=== PATIENT | female | born 1995 | race Caucasian/White ===

== ENCOUNTER 2020-10-11 09:28 | Outpatient (REF) | payer MEDICAID, SELFPAY | END 2020-10-11 09:29 | disposition home or self-care (01) | LOC: HO.LAB 09:28 | PROVIDERS: Visit Provider Internal Medicine | DX: Z20.828 Contact with and (suspected) exposure to other viral communicable diseases (principal) | CPT/HCPCS: C9803; U0003 ==

== ENCOUNTER → 2021-04-27 09:26 | Outpatient (BNVA) | payer SELFPAY | PROVIDERS: Visit Provider Physician Assistant Medical | DX: Z76.89 Persons encountering health services in other specified circumstances (principal) ==

== ENCOUNTER 2021-07-31 15:55 | Emergency (ER) | payer OTHER, SELFPAY ==
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
[2021-07-31 16:27] VITALS: BP 108/77; PULSE 81; RESP 18; TEMP 36.7; O2SAT 100; BMI 31.1
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
[2021-07-31 18:48] VITALS: BP 121/60; PULSE 71; RESP 16; TEMP 37; O2SAT 99
[2021-07-31 19:06] LABS: Glucose Urine UA NEG (NEG); Leukocyte Esterase Urine NEG (NEG); Nitrite Urine NEG (NEG); Urine Blood NEG (NEG); Urine Ketones NEG (NEG); Urine Protein NEG (NEG-TRACE)
[2021-07-31 19:07] LABS: Appearance Urine CLEAR; Color Urine YELLOW
[2021-07-31 19:08] LABS: UPreg QC Valid YES; Urine Pregnancy NEGATIVE (NEGATIVE)
[2021-07-31] MEDS: Ibuprofen 800 MG TABLET PO (19:16)
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
== END 2021-07-31 21:32 | disposition home or self-care (01) ==
PROVIDERS: Emergency Provider Emergency Medicine
DX: S29.012A Strain of muscle and tendon of back wall of thorax, initial encounter (principal); S39.012A Strain of muscle, fascia and tendon of lower back, initial encounter; V43.52XA Car driver injured in collision with other type car in traffic accident, initial encounter; Y93.89 Activity, other specified; Y92.414 Local residential or business street as the place of occurrence of the external cause; Y99.9 Unspecified external cause status
CPT/HCPCS: 72070; 72100; 81003; 81025; 96372; 99283; 99284

== ENCOUNTER 2022-02-22 13:32 | Outpatient (REF) | payer MEDICAID, SELFPAY ==
[2022-02-22 14:34] LABS: MANUAL DIFF FLAG NO
[2022-02-22 14:56] LABS: Basophils Percent Auto 0.3 % (0-2); Eosinophils Absolute Auto 0.1 X10*3/uL (0.0-0.4); Hematocrit 32.8 % (37.0-47.0); Hemoglobin 11.1 g/dl (12.0-16.0); Imm Gran Abs Auto 0.02 X10*3/uL (0.00-0.03); Imm Gran Pct Auto 0.3 % (0.0-0.4); Lymphocytes Absolute Auto 2.7 X10*3/uL (1.2-4.9); Lymphocytes Percent Auto 33.9 % (20-40); Mean Corpuscular HGB Conc 33.8 g/dl (31.0-35.0); Mean Corpuscular Hemoglobin 29.5 pg (27.0-33.0); Mean Corpuscular Volume 87.2 fL (80.0-98.0); Mean Platelet Volume 9.5 fL (9.4-12.3); Monocytes Absolute Auto 0.5 X10*3/uL (0.1-1.2); Neutrophils Absolute Auto 4.6 x10*3/uL (2.0-8.3); Neutrophils Percent Auto 58.5 % (45-73); Platelet Count 282 X10*3/uL (160-400); Red Blood Count 3.76 X10*6/uL (4.20-5.50); Red Cell Distribution Width 11.3 % (11.0-16.0); White Blood Count 7.9 X10*3/uL (4.8-10.8)
[2022-02-22 15:31] LABS: Alanine Aminotransferase 12 U/L (0-31); Alkaline Phosphatase 52 U/L (39-117); Anion Gap 8 (12-20); Aspartate Amino Transferase 14 U/L (5-31); Bilirubin Total 0.3 mg/dL (0.0-1.0); Blood Urea Nitrogen 8 mg/dL (9-16); C Reactive Protein 0.16 mg/dL (< or = 0.50); Calcium 9.2 mg/dL (8.4-10.2); Carbon Dioxide 28 mmol/L (22-29); Chloride 106 mmol/L (96-108); Estimated Glomerular Filt Rate > 60; Glucose Random 97 mg/dL (60-115); Potassium 3.6 mmol/L (3.3-5.1); Sodium 138 mmol/L (135-145); Total Protein 6.8 g/dL (6.5-8.0)
[2022-02-23 13:27] LABS: Transglutaminase Ab IgG <1.0 U/mL; Transglutaminase IgA <1.0 U/mL
== END 2022-02-22 13:33 | disposition home or self-care (01) ==
LOC: HO.LAB 13:32
PROVIDERS: PCP Internal Medicine; Referring Provider Internal Medicine; Visit Provider Nurse Practitioner
DX: K52.9 Noninfective gastroenteritis and colitis, unspecified (principal)
CPT/HCPCS: 36415; 80053; 85025; 86140; 86364; 99202

== ENCOUNTER 2022-03-19 13:41 | Outpatient (REF) | payer MEDICAID, SELFPAY ==
--- NOTE | ~2022-03-19 | XR_ITS ---
EXAMINATION: XR CHEST CLINICAL INFORMATION: Chest pain, unspecified COMPARISON: None TECHNIQUE: 2 views of the chest were obtained. FINDINGS: The lungs are clear. No airspace consolidation or groundglass opacity or effusion. No pneumothorax or pleural reaction. No hyperinflation. The heart is normal in size. The hilar and mediastinal contours and visualized bony structures are unremarkable. XR/XR chest 2V IMPRESSION: Normal study.
== END 2022-03-19 13:42 | disposition home or self-care (01) ==
LOC: HO.XRAY 13:41
PROVIDERS: Absent Provider Internal Medicine; PCP Internal Medicine; Visit Provider Nurse Practitioner
DX: R07.9 Chest pain, unspecified (principal)
CPT/HCPCS: 71046

== ENCOUNTER 2022-04-04 11:41 | Outpatient (REF) | payer MEDICAID, SELFPAY ==
[2022-04-11 03:01] LABS: Calprotectin, Fecal 40 mcg/g
== END 2022-04-04 11:42 | disposition home or self-care (01) ==
LOC: HO.LNP 11:41
PROVIDERS: Visit Provider Nurse Practitioner
DX: K52.9 Noninfective gastroenteritis and colitis, unspecified (principal)
CPT/HCPCS: 83993

== ENCOUNTER → 2022-04-05 13:38 | Outpatient (BNVA) | payer MEDICAID, SELFPAY | PROVIDERS: PCP Internal Medicine; Referring Provider Internal Medicine; Visit Provider Nurse Practitioner | DX: K52.9 Noninfective gastroenteritis and colitis, unspecified (principal) | CPT/HCPCS: 99212 ==

== ENCOUNTER → 2022-05-20 10:28 | Outpatient (BNVA) | payer MEDICAID, SELFPAY | PROVIDERS: PCP Internal Medicine; Referring Provider Nurse Practitioner; Visit Provider Internal Medicine Cardiovascular Disease | DX: R07.2 Precordial pain (principal) | CPT/HCPCS: 99202 ==

== ENCOUNTER 2022-07-16 15:39 | Outpatient (REF) | payer MEDICAID, SELFPAY ==
[2022-07-16 15:59] LABS: MANUAL DIFF FLAG NO
[2022-07-16 16:25] LABS: Basophils Percent Auto 0.6 % (0-2); Eosinophils Absolute Auto 0.2 X10*3/uL (0.0-0.4); Eosinophils Percent Auto 2.5 % (0-4); Hematocrit 36.5 % (37.0-47.0); Imm Gran Abs Auto 0.04 X10*3/uL (0.00-0.03); Imm Gran Pct Auto 0.6 % (0.0-0.4); Lymphocytes Absolute Auto 1.7 X10*3/uL (1.2-4.9); Lymphocytes Percent Auto 26.3 % (20-40); Mean Corpuscular HGB Conc 35.6 g/dl (31.0-35.0); Mean Corpuscular Hemoglobin 29.9 pg (27.0-33.0); Mean Corpuscular Volume 83.9 fL (80.0-98.0); Mean Platelet Volume 9.1 fL (9.4-12.3); Monocytes Absolute Auto 0.7 X10*3/uL (0.1-1.2); Monocytes Percent Auto 10.8 % (2-11); Neutrophils Absolute Auto 3.8 x10*3/uL (2.0-8.3); Neutrophils Percent Auto 59.2 % (45-73); Platelet Count 307 X10*3/uL (160-400); Red Blood Count 4.35 X10*6/uL (4.20-5.50); Red Cell Distribution Width 11.5 % (11.0-16.0); White Blood Count 6.5 X10*3/uL (4.8-10.8)
[2022-07-16 16:48] LABS: C Reactive Protein 4.06 mg/dL (< or = 0.50); Lactate Dehydrogenase 171 U/L (122-220)
[2022-07-17 17:18] LABS: CDiff Gene PCR NEGATIVE (Negative)
[2022-07-18 16:36] LABS: Transglutaminase Ab IgG <1.0 U/mL; Transglutaminase IgA <1.0 U/mL
== END 2022-07-16 15:40 | disposition home or self-care (01) ==
LOC: HO.LAB 15:39
PROVIDERS: PCP Internal Medicine; Visit Provider Nurse Practitioner
DX: K52.9 Noninfective gastroenteritis and colitis, unspecified (principal); R10.9 Unspecified abdominal pain; R11.2 Nausea with vomiting, unspecified
CPT/HCPCS: 36415; 83615; 85025; 86003; 86140; 86364; 87493; 99212

== ENCOUNTER 2022-07-19 08:04 | Outpatient (REF) | payer MEDICAID, SELFPAY ==
--- NOTE | ~2022-07-19 | CT_ITS ---
EXAMINATION: CT ABDOMEN AND PELVIS WITH CONTRAST CLINICAL INFORMATION: Noninfective gastroenteritis and colitis COMPARISON: None TECHNIQUE: Multidetector volumetric images were obtained from the superior aspect of the liver through the pubic symphysis following administration 85 mL of Omnipaque 350 intravenous contrast. Sagittal and coronal reformatted images were obtained on the technologist's workstation. Oral contrast: Yes This CT examination was performed using dose optimization techniques as appropriate, variously including the following: *Automated exposure control *Adjustment of mA and/or kV according to patient size (this includes techniques or standardized protocols for targeted exams where dose is matched to indication/reason for exam; i.e. extremities or head) *Use of iterative reconstruction technique DLP: 377 mGy-cm FINDINGS: LUNG BASES: The visualized lung bases are unremarkable. LIVER, GALLBLADDER, AND BILIARY TREE: The liver is normal in size, shape, and attenuation. No focal hepatic lesion or biliary ductal dilatation is present. The gallbladder is unremarkable with no evidence of radiopaque gallstones, gallbladder wall thickening, or obvious pericholecystic inflammatory changes. PANCREAS: Unremarkable. SPLEEN: Unremarkable. ADRENAL GLANDS: Unremarkable. KIDNEYS AND URETERS: The kidneys are normal in size, shape, and attenuation. No hydronephrosis, hydroureter, or calculi seen. No perinephric stranding. BLADDER: Unremarkable. GASTROINTESTINAL TRACT: There is a large amount of stool in the distal colon suggestive of constipation. There is question of wall thickening in the cecum. Small and large bowel are otherwise unremarkable. The appendix is not seen. The stomach is normal. ABDOMINAL WALL: No significant hernia is appreciated. LYMPH NODES: There are prominent small bowel mesentery lymph nodes in the right lower quadrant. Largest lymph nodes are upper normal in size measuring 1 cm in short axis. No other adenopathy. There is trace ascites in the right lower quadrant and pelvis. VASCULAR: Unremarkable. PELVIC VISCERA: Unremarkable. OSSEOUS STRUCTURES: Unremarkable. CT/CT abdomen pelvis w con IMPRESSION: Constipation. Question wall thickening in the cecum. Prominent small bowel mesentery lymph nodes in the right lower quadrant. Fleischner guidelines were followed.
[2022-07-19] MEDS: iohexoL 350 MG/ML 100 ML INFUS..BTL IV (10:36)
[2022-07-19] MEDS: Barium Sulfate Oral (Mocha) 450 ML ORAL.SUSP 900 ML PO (10:37)
== END 2022-07-19 08:05 | disposition home or self-care (01) ==
LOC: HO.CT 08:04
PROVIDERS: Visit Provider Nurse Practitioner
DX: K52.9 Noninfective gastroenteritis and colitis, unspecified (principal)
CPT/HCPCS: 74177; Q9967

== ENCOUNTER → 2022-07-25 15:08 | Outpatient (BNVA) | payer MEDICAID, SELFPAY | PROVIDERS: PCP Internal Medicine; Referring Provider Internal Medicine; Visit Provider Nurse Practitioner | DX: K37 Unspecified appendicitis (principal) | CPT/HCPCS: 99212 ==

== ENCOUNTER → 2022-10-03 15:36 | Outpatient (BNVA) | payer MEDICAID, SELFPAY | PROVIDERS: PCP Internal Medicine; Visit Provider Nurse Practitioner | DX: K52.9 Noninfective gastroenteritis and colitis, unspecified (principal); K58.9 Irritable bowel syndrome, unspecified; R10.9 Unspecified abdominal pain; R11.2 Nausea with vomiting, unspecified; R19.7 Diarrhea, unspecified; R79.82 Elevated C-reactive protein (CRP) | CPT/HCPCS: 99212 ==

== ENCOUNTER 2022-10-24 15:46 | Outpatient (REF) | payer MEDICAID, SELFPAY ==
[2022-10-24 17:40] LABS: C Reactive Protein 0.29 mg/dL (< or = 0.50)
== END 2022-10-24 15:47 | disposition home or self-care (01) ==
LOC: HO.LAB 15:46
PROVIDERS: PCP Internal Medicine; Visit Provider Nurse Practitioner
DX: K52.9 Noninfective gastroenteritis and colitis, unspecified (principal); R10.9 Unspecified abdominal pain; R11.2 Nausea with vomiting, unspecified; R79.82 Elevated C-reactive protein (CRP)
CPT/HCPCS: 36415; 86140; 99212

== ENCOUNTER 2023-02-13 10:30 | Outpatient (REF) | payer MEDICAID, SELFPAY ==
[2023-02-13 11:23] LABS: MANUAL DIFF FLAG NO
[2023-02-13 12:25] LABS: Basophils Absolute Auto 0.1 X10*3/uL (0.0-0.2); Basophils Percent Auto 0.8 % (0-2); Eosinophils Absolute Auto 0.1 X10*3/uL (0.0-0.4); Eosinophils Percent Auto 0.9 % (0-4); Hemoglobin 11.7 g/dl (12.0-16.0); Imm Gran Abs Auto 0.01 X10*3/uL (0.00-0.03); Imm Gran Pct Auto 0.2 % (0.0-0.4); Lymphocytes Absolute Auto 2.7 X10*3/uL (1.2-4.9); Mean Corpuscular HGB Conc 33.4 g/dl (31.0-35.0); Mean Corpuscular Hemoglobin 30.4 pg (27.0-33.0); Mean Corpuscular Volume 90.9 fL (80.0-98.0); Mean Platelet Volume 9.7 fL (9.4-12.3); Monocytes Absolute Auto 0.4 X10*3/uL (0.1-1.2); Monocytes Percent Auto 6.8 % (2-11); Neutrophils Absolute Auto 3.1 x10*3/uL (2.0-8.3); Neutrophils Percent Auto 48.3 % (45-73); Platelet Count 305 X10*3/uL (160-400); Red Blood Count 3.85 X10*6/uL (4.20-5.50); Red Cell Distribution Width 11.9 % (11.0-16.0); White Blood Count 6.4 X10*3/uL (4.8-10.8)
[2023-02-13 12:33] LABS: Prothrombin Time 11.9 SEC (10.0-13.1)
[2023-02-13 13:13] LABS: Alanine Aminotransferase 8 U/L (0-31); Albumin Level 4.1 g/dL (3.5-5.0); Alkaline Phosphatase 53 U/L (39-117); Anion Gap 11 (12-20); Aspartate Amino Transferase 16 U/L (5-31); Bilirubin Total 0.6 mg/dL (0.0-1.0); Blood Urea Nitrogen 9 mg/dL (9-16); C Reactive Protein < 0.10 mg/dL (< or = 0.50); Calcium 8.9 mg/dL (8.4-10.2); Carbon Dioxide 27 mmol/L (22-29); Chloride 106 mmol/L (96-108); Estimated Glomerular Filt Rate > 60; Glucose Random 80 mg/dL (60-115); Potassium 3.9 mmol/L (3.3-5.1); Sodium 140 mmol/L (135-145)
[2023-02-13 13:18] LABS: TSH reflex Free T4 0.51 uIU/mL (0.32-4.0)
[2023-02-18 07:43] LABS: Anti Nuclear Antibody Screen NEGATIVE (NEGATIVE)
== END 2023-02-13 10:31 | disposition home or self-care (01) ==
LOC: HO.LAB 10:30
PROVIDERS: PCP Internal Medicine; Visit Provider Nurse Practitioner
DX: K58.9 Irritable bowel syndrome, unspecified (principal); R19.7 Diarrhea, unspecified; R10.9 Unspecified abdominal pain; R23.8 Other skin changes; R79.82 Elevated C-reactive protein (CRP)
CPT/HCPCS: 36415; 80053; 84443; 85025; 85610; 86003; 86038; 86039; 86140; 99212

== ENCOUNTER 2023-02-17 08:30 | Outpatient (REF) | payer MEDICAID, SELFPAY ==
[2023-02-28 19:43] LABS: Pancreatic Elastase-1 >500 mcg/g
== END 2023-02-17 08:31 | disposition home or self-care (01) ==
LOC: HO.LNP 08:30
PROVIDERS: Visit Provider Nurse Practitioner
DX: K58.9 Irritable bowel syndrome, unspecified (principal)
CPT/HCPCS: 82656

== ENCOUNTER → 2023-04-09 11:20 | Outpatient (BNVA) | payer MEDICAID, SELFPAY | PROVIDERS: PCP Internal Medicine; Visit Provider Nurse Practitioner | DX: R11.0 Nausea (principal); R19.7 Diarrhea, unspecified; R68.81 Early satiety | CPT/HCPCS: 99212 ==

== ENCOUNTER → 2023-04-29 08:45 | Outpatient (REF) | payer MEDICAID, SELFPAY ==
--- NOTE | ~2023-04-29 | NM_ITS ---
EXAMINATION: RADIONUCLIDE SOLID FOOD GASTRIC EMPTYING 4-HOUR STUDY CLINICAL INFORMATION: Diarrhea, unspecified. COMPARISON: No previous gastric emptying study is available for comparison TECHNIQUE: A standard meal consisting of 4 oz of Egg Beaters brand equivalent tagged with 930 microcuries Tc-99m Sulfur Colloid, 8 oz water and 2 slices of toast with jelly was administered orally to the patient. Images were obtained using a dual head gamma camera in the anterior and posterior projections over of the stomach immediately post ingestion and at hourly intervals up to 4 hours post ingestion. The anterior and posterior counts at each time interval were averaged using the geometric mean and expressed as percentage of the immediate post ingestion counts. FINDINGS: There is good visualization of activity in the stomach immediately post ingestion. As the study progresses, there is good clearance of activity from the stomach and visualization of progressively increasing small bowel activity. By the end of the study, there is almost no retention noted in the stomach. Retention in the stomach at each time interval was: 1 hour 68% (normal 37%-90%) 2 hours 29% (normal 30%-60%) 3 hours 21% 4 hours 6% (normal 0%-10%) NM/NM gastric emptying study IMPRESSION: Normal 4-hour solid food gastric emptying study.
== END ==
LOC: HO.NUCMED 08:45
PROVIDERS: PCP Internal Medicine; Visit Provider Nurse Practitioner
DX: R68.81 Early satiety (principal); R19.7 Diarrhea, unspecified; R11.0 Nausea
CPT/HCPCS: 78264; A9541

== ENCOUNTER → 2023-05-21 11:20 | Outpatient (BNVA) | payer MEDICAID, SELFPAY | PROVIDERS: PCP Internal Medicine; Visit Provider Nurse Practitioner | DX: R19.7 Diarrhea, unspecified (principal); R68.81 Early satiety; R11.0 Nausea; R79.82 Elevated C-reactive protein (CRP) | CPT/HCPCS: 99212 ==

== ENCOUNTER → 2023-08-21 13:55 | Outpatient (BNVA) | payer MEDICAID, SELFPAY | PROVIDERS: PCP Internal Medicine; Visit Provider Nurse Practitioner | DX: R19.7 Diarrhea, unspecified (principal) | CPT/HCPCS: 99212 ==

== ENCOUNTER 2023-08-21 13:56 | Outpatient (AMB) | payer MEDICAID, SELFPAY ==
--- NOTE | 2023-08-21 13:52 | MHC.OFFVIS ---
Intake Vital Signs 08/21/23 13:58 Height 5 ft 2 in Weight 130 lb 15.273 oz BMI 23.9 BP 115/79 Blood Pressure Location Lt brachial Position Sitting Pulse 85 Intake Visit Reasons: 3 month fu Intake Note: Christin presents in the office today in 3 months follow up. CC: Patient reports doing well with medications. Pt needs refill on Creon and dicyclomine. Denies any new GI symptoms or concerns. Research & Analytics Manager Required: No Accompanied by: Self / Same As Patient Allergies No Known Allergies [No Known Allergies*] Allergy (Verified 05/21/23 11:33) HPI 3 month fu HPI Details Assessment & Plan (1) Nausea: Code(s): R11.0 - Nausea Plan: She is only taking the creon once a day, she does not carry a pocketbook and finds she can't find a good way to take it when she is out and about. I suggest she try taking it bid in the am and at bedtime. She still feels the the bentyl is quite helpful for her 'intestinal problems . She finds that the bloating and nausea seems to be worse when she eats big meals. We review the GES that is normal. She still swings between CIC and diarrhea - she lives with someone who has a lot of food allergies so she avoids gluten, soy, dairy etd....may not be getting enough fiber to equalize things. Discuss Benefiber etc.....she did take fiber gummies in the past with probitroics but does not remember if this worked. She is inconsistent with her compliance and today she seems unfocused and distant in her interview. I can't gauge if she is discouraged of if there is another distracting factor. She is wearing very dark sunglasses, which is odd. She is here today with a young male child. I ask that she take the bentyl and creon together bid to simplify compliance. ROV 3 mos per pt request. (2) Early satiety: Code(s): R68.81 - Early satiety (3) Diarrhea: Code(s): R19.7 - Diarrhea, unspecified (4) CRP elevated: Code(s): R79.82 - Elevated C-reactive protein (CRP) TODAY'S VISIT She feels she continues to do well and taking the creon 2 tabs bid was helpful, but I like the blue ones better. We did discuss her possibly doing a trial off of the Creon to see how much it may are may not be doing for her and she can do this at her leisure. With this she feels satisfied with her GI regimen. ROV 6 mos [facility] Medical History (Updated 08/21/23 @ 16:03 by DALLAS Porter) Nausea Early satiety Nausea, vomiting and diarrhea Surgical History History of section Family History Father No problems noted. Mother No problems noted. Maternal Grandmother Breast cancer Social History Patient Tobacco Use Status: Former Tobacco user Review of Systems Const Denies fatigue, Denies fever(s), Denies night sweats, Denies poor appetite and Denies weight loss ENT Reports Normal hearing present, Denies dental pain, Denies dysphagia, Denies hearing loss, Denies mouth pain, Denies odynophagia, Denies throat swelling, Denies tongue swelling and Reports other (Dentition adequate) Card Reports no additional complaints Resp Reports no additional complaints GI Denies abdominal pain, Denies melena, Reports bloating, Denies hematochezia, Denies constipation, Denies GI cramping, Denies dysphagia, Denies excessive flatus, Denies early satiety, Denies heartburn, Reports diarrhea, Denies nausea, Denies odynophagia, Denies vomiting and Denies hematemesis Skin/Breast Denies pruritus, Denies lesions, Denies rash and Denies jaundice Neuro Reports Normal hearing present and Denies Abnormal speech present Endo Denies fatigue Aller/Immun Denies throat swelling and Denies tongue swelling Physical Exam Vital Signs: Last Vital Signs Pulse 85 08/21/23 13:58 BP 115/79 08/21/23 13:58 BMI result Body Mass Index 23.9 Const General: cooperative, no acute distress, well developed and well groomed Nutritional Appearance: average body habitus and well nourished Orientation/consciousness: oriented to person, oriented to place and oriented to time Limitations: No language barrier HEENT Head: Yes normocephalic and Yes atraumatic Eyes General: appearance normal, both eyes and all related structures Pupils: Equal, round and reactive pupils present Neck Neck: Yes normal visual inspection and Yes no lymphadenopathy Thyroid: Thyroid normal Resp Effort & Inspection: normal respiratory effort and able to speak in complete sentences Auscultation: clear to auscultation bilaterally Cardio Rate: regular rate Rhythm: regular rhythm Heart sounds: Normal, physiologic split S2 sound present Peripheral pulses: radial pulses present and posterior tibial pulses present GI Inspection: No distended and No Abdominal panniculus present Palpation (GI): Soft to palpation, nontender, no guarding, not rigid and No hepatosplenomegaly present Percussion: Yes normal to percussion Auscultation: normal bowel sounds Rectal Exam - Female: deferred Skin General skin exam: no rashes or lesions noted, turgor normal, skin not dry, no jaundice, No spider nevi and no striae Rashes: no rashes Nails: normal Neuro General: oriented to person, oriented to place and oriented to time Cranial nerves: Yes Equal, round and reactive pupils present and Yes Normal hearing present Speech: No Abnormal speech present Extrem General: Yes normal to inspection, No clubbing, No cyanosis and No edema Psych Appearance: grossly normal and well kempt Mental Status: mental status grossly normal Speech and movement: Normal speech and movement present Affect: normal affect Attitude: cooperative Thought process: Normal thought process present and not confabulating Thought content: Normal thought content present Insight: Fair insight present (Psych) Judgement: Fair judgement present (Psych) Assessment & Plan Assessment & Plan (1) Diarrhea: Code(s): R19.7 - Diarrhea, unspecified Plan: She feels she continues to do well and taking the creon 2 tabs bid was helpful, but I like the blue ones better. We did discuss her possibly doing a trial off of the Creon to see how much it may are may not be doing for her and she can do this at her leisure. With this she feels satisfied with her GI regimen. ROV 6 mos Medications: Refilled dicyclomine 20 mg PO QID 30 days 120 tabs 6RF K58.9 - Irritable bowel syndrome without diarrhea [id number] 24,000-76,000 -120,000 unit (Creon) administer with meals and/or snacks 1 cap PO QID 30 days 120 caps 6RF K58.9 - Irritable bowel syndrome without diarrhea Coding Level of Care Code Est Pt Level 3 (39073) Diagnoses Diarrhea R19.7
[2023-08-21 13:58] VITALS: BP 115/79; PULSE 85; BMI 23.9
== END 2023-08-21 14:16 | disposition home or self-care (01) ==
PROVIDERS: PCP Internal Medicine; Visit Provider Nurse Practitioner
DX: R19.7 Diarrhea, unspecified (principal)
CPT/HCPCS: 99213

== ENCOUNTER 2025-03-22 | Outpatient (REF) | payer MEDICAID, SELFPAY ==
[2025-03-22 16:56] LABS: Bacterial Vaginosis PCR NEGATIVE (Negative); Candida Group PCR NOT DETECTED (Not Detect); Candida glab krusei PCR NOT DETECTED (Not Detect); Trichomonas vaginalis PCR NOT DETECTED (Not Detect)
[2025-03-22 17:28] LABS: CT PCR NOT DETECTED (Not Detect.); NG PCR NOT DETECTED (Not Detect.)
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
== END 2025-03-22 00:01 ==
LOC: HO.LNP
PROVIDERS: Visit Provider Internal Medicine
DX: Z01.419 Encounter for gynecological examination (general) (routine) without abnormal findings (principal)
CPT/HCPCS: 81515; 87491; 87591; 88175

== ENCOUNTER 2025-03-31 12:00 | Outpatient (REF) | payer MEDICAID, SELFPAY ==
--- OUTSIDE RECORDS SUMMARY | 2025-03-31 13:29 | XMS_ITS | Encounter Summary ---
Author Organization [employer] Address [address] [facility] [address] [place] [address] Care Team Providers Care Thermal Engineer Name Role Phone Graciela Nunez MD Primary Care Provider + Reason for Visit * Reason Onset Date Comments Lab Orders 03/31/2025 Encounter Details Date Type Department Care Team ([facility] st Contact Info) Description 03/31/2025 Telephone [facility] [address] [place], [place] [phone] Ashley Rodríguez RN [address] [place], [place] [phone] Lab Orders Social History Tobacco Use Types Packs/Day Years Used Date Smoking Tobacco: Never Smokeless Tobacco: Never Housing Stability Answer Date Recorded What is your housing situation today? I have kayce brewer 12/11/[address] you li ve. Do you have problems with any of the following? None of the above 12/11/2023 Food Insecurity Answer Date Recorded Within the past 12 months, y ou worried that your food would run out before you got money to buy more: Never True 12/11/2023 Within the past 12 months,th e food you bought just didn't last and you didn't have enough money to get more: Never True Transportation Answer Date Recorded In the past 12 months, has l ack of transportation kept you from medical appts, meetings, work or from getting things needed for daily living? No 12/11/2023 Utilities Answer Date Recorded In the past 12 months, has t he electric, gas, oil or water company threatened to shut off services in your home? No 12/11/2023 Comments No Sex and Gender Information Value Date Recorded Sex Assigned at Female 09/23/2022 10:14 AM EDT Legal Sex Female 10:14 AM EDT Gender Identity Female 09/23/2022 10:14 AM EDT Sexual Orientation Bisexual 09/23/2022 10 :14 AM EDT documented as of this encounter Miscellaneous Notes * Telephone Encounter - Ashley Rodríguez RN - 03/31/2025 11:36 AM EDT Received call from forms dept that pt. Is in need of MMR, varicella and hep B titers, as well as tbtest and Tetanus vaccine. Lab orders placed for titers and tb test, pt. Can be scheduled to tdap vaccine when other results are back in case other IZ are needed. Pt. Is currently in forms dept. And will be made aware documented in this encounter Plan of Treatment Upcoming Encounters Date Type Department Care Team (Late st Contact Info) Description 04/29/2025 2:00 PM EDT Office Visit [facility] [address] [place] [phone] Lorene Bourgeois MD [address] [place] [address] Scheduled Orders Name Type Priority Associated Diagnoses Orde r Schedule Measles, Mumps, and Rubella (MMR) Antibodies??(IgG) Panel, Immune Status Lab Routine Pre-employment examination Expected: 03/31/2025 (Approximate), Expires: 03/31/2026 Varicella Zoster Antibody, IgG Lab Routine Pre-employment examination Expected: 03/31/2025 (Approximate), Expires: 03/31/2026 T-SPOT??.TB Lab Routine Pre-employment examination Expected: 03/31/2025 (Approximate), Expires: 03/31/2026 Hepatitis B Surface Antibody, Qualitative Lab Routine Pre-employment examination Expected: 03/31/2025 (Approximate), Expires: 03/31/2026 documented as of this encounter Visit Diagnoses Diagnosis Pre-employment examination documented in this encounter Care Teams Thermal Engineer Relationship Specialty Start Date End Date Graciela Nunez MD [address] [place] [phone] PCP - General Family Medicine 07/09/17 documented as of this encounter
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
--- OUTSIDE RECORDS SUMMARY | 2025-03-31 13:29 | XMS_ITS | Encounter Summary ---
Author Organization [employer] Address [address] [place] [address] 7 [place] [address] Care Team Providers Care Vocational Rehabilitation Administrator Name Role Phone Graciela Nunez MD Primary Care Provider + Reason for Visit * Reason Onset Date Comments Appointment Request 12/03/2023 Encounter Details Date Type Department Care Team (Late st Contact Info) Description 12/03/2023 Telephone [facility] [address] [place] [phone] Graciela Nunez MD [address] [place] [address] [phone] Appointment Request Social History Tobacco Use Types Packs/Day Years Used Date Smoking Tobacco: Never Smokeless Tobacco: Never Comments Unknown Sex and Gender Information Value Date Recorded Sex Assigned at Female 09/23/2022 10:14 AM EDT Legal Sex Female 10:14 AM EDT Gender Identity Female 09/23/2022 10:14 AM EDT Sexual Orientation Bisexual 09/23/2022 10 :14 AM EDT documented as of this encounter Miscellaneous Notes * Telephone Encounter - Cynthia Malin - 12/03/2023 4:00 PM EST Tc from pt requesting a PE for school, automotive service writer attempted to schedule however pt needs a sooner appt. documented in this encounter Plan of Treatment Upcoming Encounters Date Type Department Care Team (Late st Contact Info) Description 04/29/2025 2:00 PM EDT Office Visit [facility] [address] [place] [phone] Lorene Bourgeois MD [address] [place] [address] documented as of this encounter Visit Diagnoses Not on filedocumented in this encounter Care Teams Vocational Rehabilitation Administrator Relationship Specialty Start Date End Date Graciela Nunez MD [address] [place] [address] PCP - General Family Medicine 07/09/17 documented as of this encounter
[2025-03-31 13:57] LABS: HBS Num1 90.34 mIU/mL (0-7.99); ~Hepatitis B Surface Antibody REACTIVE (Nonreactive)
[2025-04-01 18:28] LABS: Rubella IgG Antibody 1.39 Index; Varicella IgG Antibody <1.00 S/CO
[2025-04-02 20:33] LABS: TS Negative Control Passed; TS Panel A 0; TS Panel B 1; TS Positive Control Passed; TSpotTB Negative (Negative)
== END 2025-03-31 12:01 | disposition home or self-care (01) ==
LOC: HO.HHCL 12:00
PROVIDERS: Visit Provider Internal Medicine
DX: Z02.1 Encounter for pre-employment examination (principal)
CPT/HCPCS: 36415; 86481; 86706; 86735; 86762; 86765; 86787

== ENCOUNTER → 2025-04-13 11:41 | Outpatient (BNVA) | payer SELFPAY | PROVIDERS: PCP Internal Medicine | DX: Z02.89 Encounter for other administrative examinations (principal) ==

== ENCOUNTER 2025-07-18 13:39 | Outpatient (REF) | payer MEDICAID, SELFPAY ==
--- OUTSIDE RECORDS SUMMARY | 2025-07-18 15:00 | XMS_ITS | Encounter Summary ---
Author Organization [employer] Address [address] [place] [address] 7 [place] [address] Care Team Providers Care Manager Software Development Name Role Phone Graciela Nunez MD Primary Care Provider + Reason for Visit * Reason Onset Date Comments Appointment Request 12/03/2023 Encounter Details Date Type Department Care Team ([facility] st Contact Info) Description 12/03/2023 Telephone [facility] MEDICINE [address] [place], [place] [phone] Graciela Nunez MD [address] [place], [place] [phone] Appointment Request Social History Tobacco Use Types Packs/Day Years Used Date Smoking Tobacco: Never Smokeless Tobacco: Never Comments Unknown Sex and Gender Information Value Date Recorded Sex Assigned at Female 09/23/2022 10:14 AM EDT Legal Sex Female 10:14 AM EDT Gender Identity Female 09/23/2022 10:14 AM EDT Sexual Orientation Lesbian 04/01/2025 9: 51 AM EDT documented as of this encounter Miscellaneous Notes * Telephone Encounter - Cynthia Malin - 12/03/2023 4:00 PM EST Tc from pt requesting a PE for school, process description writer attempted to schedule however pt needs a sooner appt. documented in this encounter Plan of Treatment Not on file documented as of this encounter Visit Diagnoses Not on filedocumented in this encounter Care Teams Manager Software Development Relationship Specialty Start Date End Date Graciela Nunez MD [address] [place] [address] PCP - General Family Medicine 07/09/17 documented as of this encounter
--- OUTSIDE RECORDS SUMMARY | 2025-07-18 15:00 | XMS_ITS | Encounter Summary ---
Author Organization [employer] Address [address] [facility] [address]t [place] [address] Care Team Providers Care Software Development Specialist Name Role Phone Graciela Altman MD Primary Care Provider + Reason for Visit * Reason Onset Date Comments Lab Orders 07/04/2025 Encounter Details Date Type Department Care Team ([facility] st Contact Info) Description 07/04/2025 Telephone [facility] MEDICINE [address] [place], [place] [phone] Graciela Altman MD [address] [place], [place] [phone] Lab Orders Social History Tobacco Use Types Packs/Day Years Used Date Smoking Tobacco: Never Passive Smoke Exposure: Never Smokeless Tobacco: Never Alcohol Use Standard Drinks/Week Comments Never 0 [...] Q2 Not on file 04/20/2025 Comments No Sex and Gender Information Value Date Recorded Sex Assigned at Female 09/23/2022 10:14 AM EDT Legal Sex Female 10:14 AM EDT Gender Identity Female 09/23/2022 10:14 AM EDT Sexual Orientation Lesbian 04/01/2025 9: 51 AM EDT documented as of this encounter Miscellaneous Notes * Telephone Encounter - Ashley Rodríguez RN - 07/15/2025 10:39 AM EDT TC placed to pt. And advised of PCP recommendation and bloodwork order placed. Advised pt. To wait if possible to obtain bloodwork but it has been 6 weeks since 2nd dose, so can get it done whenever required for school. Pt. Verbalizes understanding * Addendum Note - Graciela Altman MD - 07/15/2025 10:20 AM EDTAddended by: GRACIELA ALTMAN on: 07/15/2025 10:20 AM Modules accepted: Orders * Telephone Encounter - Graciela Altman MD - 07/15/2025 10:15 AM EDT Re varicella titers, the proof of vaccination should do for school, we don't know if she has an immunity issue or what's going on at the time she gets the test if the titers do not turn at the appropriate time, titers are not even indicated int he general population...that's more of a clinical callwhich I don't think is within the school scope of training. I sent the order to be done within 6mo to be on the safe side. Please provide a letter saying she had the vaccines and she can FU as neededwith the lab. * Telephone Encounter - Ashley Rodríguez RN - 07/05/2025 2:22 PM EDT TC returned to pt. Pt. Had negative varicella titers 03/31/25, and has since receives 2 doses of varicella vaccine, 2nd dose given 05/24/25. Pt. Reports when she put this information into her school's website, it still popped up showing that she needed updated varicella titers. Pt. Is aware it takes 6-8 weeks to gain full immunity after 2nd dose of vaccine Advised pt. Request for this lab order would be sent to PCP and that PCP will be back in office next week. Pt. Will wait for response from PCP to know if/ when she can return to lab for new varicellatiters. Please advise on this, thank you! * Telephone Encounter - Salty De Paz - 07/04/2025 3:43 PM EDT Pt returning call * Telephone Encounter - Ashley Rodríguez RN - 07/04/2025 3:25 PM EDT TC returned to [phone], call went straight to VM x 2 attempts. Left message requesting call back to Red Team RN upon receipt of message. Pt. To f/up prn * Telephone Encounter - Isidro Greene - 07/04/2025 2:19 PM EDT Tc from pt requesting a lab to done of chicken pox for school. Contact pt at [phone] (Pt is requesting for PCP to contact her when the Lab order is ready, not Nurses) documented in this encounter Plan of Treatment Scheduled Orders Name Type Priority Associated Diagnoses Orde r Schedule Varicella Zoster Antibody, IgG Lab Routine History of chickenpox vaccination Expected: 01/15/2026 (Approximate), Expires: 07/15/2026 documented as of this encounter Visit Diagnoses Diagnosis History of chickenpox vaccination- Primary documented in this encounter Additional Health Concerns Assessment Noted Time PHQ-9 Depression Total Score: 0 04/29/20 25 2:09 PM EDT documented as of this encounter Care Teams Software Development Specialist Relationship Specialty Start Date End Date Graciela Altman MD [address] [place] [phone] PCP - General Family Medicine 07/09/17 documented as of this encounter
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
== END 2025-07-18 13:40 | disposition home or self-care (01) ==
LOC: HO.HHCL 13:39
PROVIDERS: PCP Internal Medicine; Visit Provider Internal Medicine
DX: Z01.84 Encounter for antibody response examination (principal); Z92.29 Personal history of other drug therapy
CPT/HCPCS: 36415; 86787